=== PATIENT | male | born 1960 | race Caucasian/White ===

== ENCOUNTER 2016-03-27 11:50 | Inpatient (IN) | payer OTHER ==
[2016-03-27 12:17] VITALS: BMI 26.4
--- NOTE | 2016-03-27 13:15 | HP ---
COWS - Scale Resting Pulse: 0= [place] 80 or Below Sweatin=Flushed/Facial Moisture Restless Observation: 3= Extraneous Movement Pupil Size: 2= Moderately Dilated Bone or Joint Aches: 2= Severe Diffuse Aches Runny Nose/ Eye Tearin= Runny Nose/Eyes GI Upset > 30mins: 3= Vomiting/Diarrhea Tremor Observation: 2= Slight Tremor Visible Yawning Observation: 2= >3x During Session Anxiety or Irritability: 2=Irritable/Anxious Goose Flesh Skin: 0=Smooth Skin COWS Score: 20 Admission ROS BHS - HPI Chief Complaint: i need help to stop using heroin Allergies/Adverse Reactions: Allergies Allergy/AdvReac Type Severity Reaction Status Date / Time No Known Allergies Allergy Verified 03/27/16 13:03 History of Present Illness: this 55 years old male with heroin dependence,withdrawal symptom,last detox 15 years ago multiple admissions in detox type 2 dm longest period of sobriety 5 years needed help to stop using drug Exam Limitations: No Limitations - Ebola screening Have you traveled outside of the country in the last 21 days: No Have you been sick,other than usual withdrawal symptoms: No - Review of Systems Constitutional: Chills, Loss of Appetite, Malaise, Night Sweats, Changes in sleep, Weakness EENT: reports: Tearing, Nose Congestion Respiratory: reports: No Symptoms reported Cardiac: reports: Palpitations GI: reports: Diarrhea, Nausea, Vomiting, Abdominal cramping : reports: No Symptoms Reported Musculoskeletal: reports: Back Pain, Joint Pain, Muscle Pain, Joint Stiffness Neuro: reports: Headache, Tremors Endocrine: reports: No Symptoms Reported Hematology: reports: No Symptoms Reported Psychiatric: reports: No Sypmtoms Reported Other Systems: Reviewed and Negative Patient History - Patient Medical History Hx Anemia: No Hx Asthma: No Hx Chronic Obstructive Pulmonary Disease (COPD): No Hx Cancer: No Hx Cardiac Disorders: No Hx Congestive Heart Failure: No Hx Hypertension: No Hx Hypercholesterolemia: No Hx Pacemaker: No HX Cerebrovascular Accident: No Hx Seizures: No Hx Dementia: No Hx Diabetes: Yes (non compliance) Hx Gastrointestinal Disorders: No Hx Liver Disease: No Hx Genitourinary Disorders: No Hx Sexually Transmitted Disorders: No Hx Renal Disease (ESRD): No Hx Thyroid Disease: No Hx Human Immunodeficiency Virus (HIV): No (last 2014 negative) Hx Hepatitis C: No Hx Depression: No Hx Suicide Attempt: No Hx Bipolar Disorder: No Hx Schizophrenia: No Other Medical History: no suicidal,no homicidal - Patient Surgical History Past Surgical History: No - PPD History Previous Implant?: Yes Documented Results: Negative w/o proof Implanted On Prior [facility] Admission?: No PPD to be Administered?: No - Smoking Cessation Smoking history: Former smoker Have you smoked in the past 12 months: No Aproximately how many cigarettes per day: 0 If you are a former smoker, when did you quit?: 2009 Hx Chewing Tobacco Use: No Initiated information on smoking cessation: No 'Breaking Loose' booklet given: 03/27/16 - Substance & Tx. History Hx Alcohol Use: No Hx Substance Use: Yes Substance Use Type: Heroin Hx Substance Use Treatment: Yes (2001 ) - Substances Abused Heroin Route: Inhalation Frequency: Daily Amount used: 3-4 BAGS Age of first use: 25 Date of Last Use: 03/27/16 Non-Rx Methadone Route: Oral Frequency: 1-2 times per week Amount used: 30-40MG Age of first use: 35 Date of Last Use: 03/27/16 Family Disease History - Family Disease History Family History: Denies Admission Physical Exam [facility] - Vital Signs Vital Signs: Vital Signs - 24 hr 03/27/16 12:09 Temperature 96.1 F L Pulse Rate 63 Respiratory 18 Rate Blood Pressure 139/82 - Physical General Appearance: Yes: Moderate Distress, Tremorous, Irritable, Sweating, Anxious HEENTM: Yes: Nasal Congestion Respiratory: Yes: Lungs Clear Neck: Yes: Within Normal Limits Breast: Yes: Within Normal Limits Cardiology: Yes: Within Normal Limits, Regular Rhythm, Regular Rate, S1, S2 Abdominal: Yes: Within Normal Limits, Normal Bowel Sounds, Non Tender, Flat, Soft Genitourinary: Yes: Within Normal Limits Back: Yes: Muscle Spasm Musculoskeletal: Yes: Back pain, Joint Stiffness, Muscle Pain Extremities: Yes: Tremors Neurological: Yes: administrative specialist II-XII NML intact, Fully Oriented, Alert, Motor Strength 5/5 Integumentary: Yes: Dry Lymphatic: Yes: Within Normal Limits - Diagnostic (1) Opioid dependence with withdrawal Current Visit: Yes Status: Acute (2) DM2 (diabetes mellitus, type 2) Current Visit: Yes Status: Acute Cleared for Admission [facility] - Detox or Rehab [facility] Level of Care: Medically Managed Detox Regimen/Protocol: Methadone BHS Breath Alcohol Content Breath Alcohol Content: 0 Urine Drug Screen - Results Drug Screen Negative: No Urine Drug Screen Results: OPI-Opiates, MTD-Methadone
[2016-03-27] MEDS ORDERED: guaiFENesin/D-METHORPHAN HB 10 ML UNIT-DOSE CUPS PO PRN (13:22)
[2016-03-27] MEDS ORDERED: MAGNESIUM HYDROX 2400MG/30ML ORAL SUSPENSION 30 ML CUP PO PRN (13:22)
[2016-03-27] MEDS ORDERED: hydrOXYzine PAMOATE 50 MG CAPSULE (FP) PO PRN (13:22)
[2016-03-27] MEDS ORDERED: P-EPHED 60MG/TRIPROLIDI 2.5MG TABLET PO PRN (13:22)
[2016-03-27] MEDS ORDERED: MAG HYDROX/AL HYDROX/SIMETH 30 ML UNIT-DOSE CUP PO PRN (13:22)
[2016-03-27] MEDS ORDERED: MAGNESIUM CITRATE 300 ML BOTTLE PO PRN (13:22)
[2016-03-27] MEDS ORDERED: ACETAMINOPHEN 325 MG TABLET (FP) PO PRN (13:22)
[2016-03-27] MEDS ORDERED: IBUPROFEN 400 MG TABLET (FP) PO PRN (13:22)
[2016-03-27] MEDS ORDERED: LOPERAMIDE HCL 2 MG CAPSULE PO PRN (13:22)
[2016-03-27] MEDS ORDERED: MENTHOL/PHENOL 1 EACH UD MM PRN (13:22)
[2016-03-27] MEDS ORDERED: METHADONE HCL 10 MG TABLET (FOR DETOX USE ONLY) PO ONE ×2 (13:40→23:00)
[2016-03-27] MEDS: diazePAM 5 MG TABLET PO PRN (14:16)
[2016-03-27 16:04] LABS: URINE APPEARANCE CLEAR; URINE BILIRUBIN NEGATIVE (NEGATIVE); URINE BLOOD NEGATIVE (NEGATIVE); URINE COLOR LTYELLOW; URINE GLUCOSE (UA) NEGATIVE (NEGATIVE); URINE KETONE NEGATIVE (NEGATIVE); URINE LEUK ESTERASE NEGATIVE (NEGATIVE); URINE NITRITE NEGATIVE (NEGATIVE); URINE PROTEIN NEGATIVE (NEGATIVE); URINE UROBILINOGEN NEGATIVE E.U./dl (0.2-1.0)
[2016-03-27] MEDS: diphenhydrAMINE HCL 50 MG CAPSULE PO PRN (22:30)
[2016-03-27] MEDS: THIAMINE HCL 100 MG TABLET (FP) PO SCH (22:30)
[2016-03-28] MEDS: diazePAM 5 MG TABLET PO PRN ×3 (05:42→23:00)
[2016-03-28] MEDS: metFORMIN HCL 500 MG TABLET (FP) PO SCH (07:59)
[2016-03-28] MEDS ORDERED: METHADONE HCL 10 MG TABLET (FOR DETOX USE ONLY) PO ONE (10:00)
[2016-03-28 10:42] LABS: ALBUMIN 4.1 g/dl (3.4-5.0); ALK PHOS 98 U/L (45-117); ANION GAP 10 (8-16); BILIRUBIN,TOTAL 0.4 mg/dL (0.2-1.0); CALCIUM 9.3 mg/dL (8.5-10.1); CO2 31 mmol/L (21-32); GLUCOSE,RANDOM 134 mg/dL (74-106); SGOT/AST 20 U/L (15-37); SGPT/ALT 26 U/L (12-78)
[2016-03-28 10:43] LABS: MCH 29.4 pg (25.7-33.7); MCHC 33.1 g/dl (32.0-35.9); MEAN PLT VOLUME 9.8 fl (7.5-11.1); PLATELET COUNT 202 K/MM3 (134-434); RDW 13.3 % (11.9-15.9)
[2016-03-28] MEDS: PRENATAL VITAMINS W/ FOLIC ACID TABLET (FP) PO SCH (10:55)
--- NOTE | 2016-03-28 11:12 | PN ---
S COWS - Scale Resting Pulse: 0= [place] 80 or Below Sweatin= Chills/Flushing Restless Observation: 3= Extraneous Movement Pupil Size: 2= Moderately Dilated Bone or Joint Aches: 4=Acute Joint/Muscle Pain Runny Nose/ Eye Tearin= Nasal Congestion GI Upset > 30mins: 1= Stomach Cramp Tremor Observation of Outstretched Hands: 2= Slight Tremor Visible Yawning Observation: 1= 1-2x During Session Anxiety or Irritability: 2=Irritable/Anxious Goose Flesh Skin: 0=Smooth Skin COWS Score: 17 BHS Progress Note (SOAP) Subjective: ANXIETY, TREMORS SWEATS. Objective: 03/28/16 11:11 Vital Signs Temperature 96.7 F L 03/28/16 09:48 Pulse Rate 80 03/28/16 09:48 Respiratory Rate 18 03/28/16 09:48 Blood Pressure 121/76 03/28/16 09:48 O2 Sat by Pulse Oximetry (%) Laboratory Last Values WBC 6.0 K/mm3 (4.0-10.0) 03/28/16 06:00 RBC 4.41 M/mm3 (4.00-5.60) 03/28/16 06:00 Hgb 13.0 GM/dL (11.7-16.9) 03/28/16 06:00 Hct 39.2 % (35.4-49) 03/28/16 06:00 MCV 89.0 fl (80-96) 03/28/16 06:00 MCHC 33.1 g/dl (32.0-35.9) 03/28/16 06:00 RDW 13.3 % (11.9-15.9) 03/28/16 06:00 Plt Count 202 K/MM3 (134-434) 03/28/16 06:00 MPV 9.8 fl (7.5-11.1) 03/28/16 06:00 Sodium 141 mmol/L (136-145) 03/28/16 06:00 Potassium 4.1 mmol/L (3.5-5.1) 03/28/16 06:00 Chloride 100 mmol/L (98-107) 03/28/16 06:00 Carbon Dioxide 31 mmol/L (21-32) 03/28/16 06:00 Anion Gap 10 (8-16) 03/28/16 06:00 BUN 19 mg/dL (7-18) H 03/28/16 06:00 Creatinine 1.0 mg/dL (0.7-1.3) 03/28/16 06:00 Creat Clearance w eGFR > 60 (>60) 03/28/16 06:00 POC Glucometer 95 UNITS (()) 03/28/16 05:43 Random Glucose 134 mg/dL (74-106) H 03/28/16 06:00 Calcium 9.3 mg/dL (8.5-10.1) 03/28/16 06:00 Total Bilirubin 0.4 mg/dL (0.2-1.0) 03/28/16 06:00 AST 20 U/L (15-37) 03/28/16 06:00 ALT 26 U/L (12-78) 03/28/16 06:00 Alkaline Phosphatase 98 U/L (45-117) 03/28/16 06:00 Total Protein 7.0 g/dl (6.4-8.2) 03/28/16 06:00 Albumin 4.1 g/dl (3.4-5.0) 03/28/16 06:00 Urine Color Ltyellow 03/27/16 14:00 Urine Appearance Clear 03/27/16 14:00 Urine pH 6.0 (5.0-8.0) 03/27/16 14:00 Ur Specific [place] 1.018 (1.001-1.035) 03/27/16 14:00 Urine Protein Negative (NEGATIVE) 03/27/16 14:00 Urine Glucose (UA) Negative (NEGATIVE) 03/27/16 14:00 Urine Ketones Negative (NEGATIVE) 03/27/16 14:00 Urine Blood Negative (NEGATIVE) 03/27/16 14:00 Urine Nitrite Negative (NEGATIVE) 03/27/16 14:00 Urine Bilirubin Negative (NEGATIVE) 03/27/16 14:00 Urine Urobilinogen Negative E.U./dl (0.2-1.0) 03/27/16 14:00 Ur Leukocyte Esterase Negative (NEGATIVE) 03/27/16 14:00 Assessment: 03/28/16 11:12 WITHDRAWAL SX Plan: CONTINUE DETOX
--- NOTE | 2016-03-28 13:31 | EKG ---
Test Reason : Blood Pressure : / mmHG Vent. Rate : 060 BPM Atrial Rate : 060 BPM P-R Int : 164 ms QRS Dur : 092 ms QT Int : 408 ms P-R-T Axes : 052 027 015 degrees QTc Int : 408 ms NORMAL SINUS RHYTHM NORMAL ECG NO PREVIOUS ECGS AVAILABLE Confirmed by PIOTR BROOKS, VENECIA ([id number]) on 03/28/2016 1:31:26 PM Referred By: Confirmed By:VENECIA SALDAÑA MD
[2016-03-28] MEDS: THIAMINE HCL 100 MG TABLET (FP) PO SCH (22:59)
[2016-03-28] MEDS: diphenhydrAMINE HCL 50 MG CAPSULE PO PRN (23:01)
[2016-03-29] MEDS: diazePAM 5 MG TABLET PO PRN (05:41)
[2016-03-29] MEDS: metFORMIN HCL 500 MG TABLET (FP) PO SCH (08:12)
[2016-03-29] MEDS ORDERED: METHADONE HCL 5 MG TABLET (FOR DETOX USE ONLY) PO ONE (10:00)
[2016-03-29] MEDS: PRENATAL VITAMINS W/ FOLIC ACID TABLET (FP) PO SCH (10:47)
--- NOTE | 2016-03-29 11:26 | PN ---
BHS COWS - Scale Resting Pulse: 1= [place] 81-100 Sweatin= Chills/Flushing Restless Observation: 3= Extraneous Movement Pupil Size: 2= Moderately Dilated Bone or Joint Aches: 4=Acute Joint/Muscle Pain Runny Nose/ Eye Tearin= Nasal Congestion GI Upset > 30mins: 1= Stomach Cramp Tremor Observation of Outstretched Hands: 2= Slight Tremor Visible Yawning Observation: 1= 1-2x During Session Anxiety or Irritability: 2=Irritable/Anxious Goose Flesh Skin: 0=Smooth Skin COWS Score: 18 BHS Progress Note (SOAP) Subjective: ANXIETY,IRRITABILITY,SWEATS. Objective: 03/29/16 11:25 Vital Signs Temperature 96.6 F L 03/29/16 10:27 Pulse Rate 86 03/29/16 10:27 Respiratory Rate 16 03/29/16 10:27 Blood Pressure 159/88 03/29/16 10:27 O2 Sat by Pulse Oximetry (%) Laboratory Last Values WBC 6.0 K/mm3 (4.0-10.0) 03/28/16 06:00 RBC 4.41 M/mm3 (4.00-5.60) 03/28/16 06:00 Hgb 13.0 GM/dL (11.7-16.9) 03/28/16 06:00 Hct 39.2 % (35.4-49) 03/28/16 06:00 MCV 89.0 fl (80-96) 03/28/16 06:00 MCHC 33.1 g/dl (32.0-35.9) 03/28/16 06:00 RDW 13.3 % (11.9-15.9) 03/28/16 06:00 Plt Count 202 K/MM3 (134-434) 03/28/16 06:00 MPV 9.8 fl (7.5-11.1) 03/28/16 06:00 Sodium 141 mmol/L (136-145) 03/28/16 06:00 Potassium 4.1 mmol/L (3.5-5.1) 03/28/16 06:00 Chloride 100 mmol/L (98-107) 03/28/16 06:00 Carbon Dioxide 31 mmol/L (21-32) 03/28/16 06:00 Anion Gap 10 (8-16) 03/28/16 06:00 BUN 19 mg/dL (7-18) H 03/28/16 06:00 Creatinine 1.0 mg/dL (0.7-1.3) 03/28/16 06:00 Creat Clearance w eGFR > 60 (>60) 03/28/16 06:00 POC Glucometer 86 UNITS (()) 03/29/16 05:32 Random Glucose 134 mg/dL (74-106) H 03/28/16 06:00 Calcium 9.3 mg/dL (8.5-10.1) 03/28/16 06:00 Total Bilirubin 0.4 mg/dL (0.2-1.0) 03/28/16 06:00 AST 20 U/L (15-37) 03/28/16 06:00 ALT 26 U/L (12-78) 03/28/16 06:00 Alkaline Phosphatase 98 U/L (45-117) 03/28/16 06:00 Total Protein 7.0 g/dl (6.4-8.2) 03/28/16 06:00 Albumin 4.1 g/dl (3.4-5.0) 03/28/16 06:00 Urine Color Ltyellow 03/27/16 14:00 Urine Appearance Clear 03/27/16 14:00 Urine pH 6.0 (5.0-8.0) 03/27/16 14:00 Ur Specific [place] 1.018 (1.001-1.035) 03/27/16 14:00 Urine Protein Negative (NEGATIVE) 03/27/16 14:00 Urine Glucose (UA) Negative (NEGATIVE) 03/27/16 14:00 Urine Ketones Negative (NEGATIVE) 03/27/16 14:00 Urine Blood Negative (NEGATIVE) 03/27/16 14:00 Urine Nitrite Negative (NEGATIVE) 03/27/16 14:00 Urine Bilirubin Negative (NEGATIVE) 03/27/16 14:00 Urine Urobilinogen Negative E.U./dl (0.2-1.0) 03/27/16 14:00 Ur Leukocyte Esterase Negative (NEGATIVE) 03/27/16 14:00 RPR Titer Nonreactive (NONREACTIVE) 03/28/16 06:00 Assessment: 03/29/16 11:25 WITHDRAWAL SX Plan: CONTINUE DETOX
[2016-03-29] MEDS: diphenhydrAMINE HCL 50 MG CAPSULE PO PRN (22:55)
[2016-03-29] MEDS: THIAMINE HCL 100 MG TABLET (FP) PO SCH (22:55)
[2016-03-30] MEDS: diazePAM 5 MG TABLET PO PRN (05:43)
[2016-03-30] MEDS: metFORMIN HCL 500 MG TABLET (FP) PO SCH (07:42)
[2016-03-30] MEDS ORDERED: METHADONE HCL 5 MG TABLET (FOR DETOX USE ONLY) PO ONE (10:00)
[2016-03-30] MEDS: PRENATAL VITAMINS W/ FOLIC ACID TABLET (FP) PO SCH (10:26)
--- NOTE | 2016-03-30 11:35 | PN ---
BHS Progress Note (SOAP) Subjective: ANXIETY,SWEATS, FATIGUE. Objective: 03/30/16 11:34 Vital Signs Temperature 96.1 F L 03/30/16 10:47 Pulse Rate 77 03/30/16 10:47 Respiratory Rate 18 03/30/16 10:47 Blood Pressure 120/76 03/30/16 10:47 O2 Sat by Pulse Oximetry (%) Laboratory Last Values WBC 6.0 K/mm3 (4.0-10.0) 03/28/16 06:00 RBC 4.41 M/mm3 (4.00-5.60) 03/28/16 06:00 Hgb 13.0 GM/dL (11.7-16.9) 03/28/16 06:00 Hct 39.2 % (35.4-49) 03/28/16 06:00 MCV 89.0 fl (80-96) 03/28/16 06:00 MCHC 33.1 g/dl (32.0-35.9) 03/28/16 06:00 RDW 13.3 % (11.9-15.9) 03/28/16 06:00 Plt Count 202 K/MM3 (134-434) 03/28/16 06:00 MPV 9.8 fl (7.5-11.1) 03/28/16 06:00 Sodium 141 mmol/L (136-145) 03/28/16 06:00 Potassium 4.1 mmol/L (3.5-5.1) 03/28/16 06:00 Chloride 100 mmol/L (98-107) 03/28/16 06:00 Carbon Dioxide 31 mmol/L (21-32) 03/28/16 06:00 Anion Gap 10 (8-16) 03/28/16 06:00 BUN 19 mg/dL (7-18) H 03/28/16 06:00 Creatinine 1.0 mg/dL (0.7-1.3) 03/28/16 06:00 Creat Clearance w eGFR > 60 (>60) 03/28/16 06:00 POC Glucometer 89 UNITS (()) 03/30/16 05:45 Random Glucose 134 mg/dL (74-106) H 03/28/16 06:00 Calcium 9.3 mg/dL (8.5-10.1) 03/28/16 06:00 Total Bilirubin 0.4 mg/dL (0.2-1.0) 03/28/16 06:00 AST 20 U/L (15-37) 03/28/16 06:00 ALT 26 U/L (12-78) 03/28/16 06:00 Alkaline Phosphatase 98 U/L (45-117) 03/28/16 06:00 Total Protein 7.0 g/dl (6.4-8.2) 03/28/16 06:00 Albumin 4.1 g/dl (3.4-5.0) 03/28/16 06:00 Urine Color Ltyellow 03/27/16 14:00 Urine Appearance Clear 03/27/16 14:00 Urine pH 6.0 (5.0-8.0) 03/27/16 14:00 Ur Specific [place] 1.018 (1.001-1.035) 03/27/16 14:00 Urine Protein Negative (NEGATIVE) 03/27/16 14:00 Urine Glucose (UA) Negative (NEGATIVE) 03/27/16 14:00 Urine Ketones Negative (NEGATIVE) 03/27/16 14:00 Urine Blood Negative (NEGATIVE) 03/27/16 14:00 Urine Nitrite Negative (NEGATIVE) 03/27/16 14:00 Urine Bilirubin Negative (NEGATIVE) 03/27/16 14:00 Urine Urobilinogen Negative E.U./dl (0.2-1.0) 03/27/16 14:00 Ur Leukocyte Esterase Negative (NEGATIVE) 03/27/16 14:00 RPR Titer Nonreactive (NONREACTIVE) 03/28/16 06:00 Assessment: 03/30/16 11:35 WITHDRAWAL SX Plan: CONTINUE DETOX
[2016-03-30] MEDS: THIAMINE HCL 100 MG TABLET (FP) PO SCH (22:16)
[2016-03-30] MEDS: diphenhydrAMINE HCL 50 MG CAPSULE PO PRN (22:16)
[2016-03-31] MEDS: metFORMIN HCL 500 MG TABLET (FP) PO SCH (07:00)
--- NOTE | 2016-03-31 09:45 | PN ---
BHS Progress Note (SOAP) Subjective: sweating,interrupted sleep,restless Objective: 03/31/16 09:44 Vital Signs - 8 hr 03/31/16 03/31/16 03/31/16 03:46 07:11 09:39 Temperature 97.3 F L 96.2 F L Pulse Rate 77 65 Respiratory 18 18 18 Rate Blood Pressure 142/93 108/69 Laboratory Tests 03/27/16 03/27/16 03/27/16 13:13 14:00 16:19 WBC RBC Hgb Hct MCV MCHC RDW Plt Count MPV Sodium Potassium Chloride Carbon Dioxide Anion Gap BUN Creatinine Creat Clearance w eGFR POC Glucometer 203 148 Random Glucose Calcium Total Bilirubin AST ALT Alkaline Phosphatase Total Protein Albumin Urine Color Ltyellow Urine Appearance Clear Urine pH 6.0 Ur Specific [place] 1.018 Urine Protein Negative Urine Glucose (UA) Negative Urine Ketones Negative Urine Blood Negative Urine Nitrite Negative Urine Bilirubin Negative Urine Urobilinogen Negative Ur Leukocyte Esterase Negative RPR Titer 03/28/16 03/28/16 03/28/16 05:43 06:00 06:00 WBC 6.0 RBC 4.41 Hgb 13.0 Hct 39.2 MCV 89.0 MCHC 33.1 RDW 13.3 Plt Count 202 MPV 9.8 Sodium 141 Potassium 4.1 Chloride 100 Carbon Dioxide 31 Anion Gap 10 BUN 19 H Creatinine 1.0 Creat Clearance w eGFR > 60 POC Glucometer 95 Random Glucose 134 H Calcium 9.3 Total Bilirubin 0.4 AST 20 ALT 26 Alkaline Phosphatase 98 Total Protein 7.0 Albumin 4.1 Urine Color Urine Appearance Urine pH Ur Specific [place] Urine Protein Urine Glucose (UA) Urine Ketones Urine Blood Urine Nitrite Urine Bilirubin Urine Urobilinogen Ur Leukocyte Esterase RPR Titer 03/28/16 03/28/16 03/29/16 06:00 16:29 05:32 WBC RBC Hgb Hct MCV MCHC RDW Plt Count MPV Sodium Potassium Chloride Carbon Dioxide Anion Gap BUN Creatinine Creat Clearance w eGFR POC Glucometer 107 86 Random Glucose Calcium Total Bilirubin AST ALT Alkaline Phosphatase Total Protein Albumin Urine Color Urine Appearance Urine pH Ur Specific [place] Urine Protein Urine Glucose (UA) Urine Ketones Urine Blood Urine Nitrite Urine Bilirubin Urine Urobilinogen Ur Leukocyte Esterase RPR Titer Nonreactive 03/29/16 03/29/16 03/30/16 16:34 16:36 05:45 WBC RBC Hgb Hct MCV MCHC RDW Plt Count MPV Sodium Potassium Chloride Carbon Dioxide Anion Gap BUN Creatinine Creat Clearance w eGFR POC Glucometer 265 100 89 Random Glucose Calcium Total Bilirubin AST ALT Alkaline Phosphatase Total Protein Albumin Urine Color Urine Appearance Urine pH Ur Specific [place] Urine Protein Urine Glucose (UA) Urine Ketones Urine Blood Urine Nitrite Urine Bilirubin Urine Urobilinogen Ur Leukocyte Esterase RPR Titer 03/30/16 03/31/16 16:17 05:50 WBC RBC Hgb Hct MCV MCHC RDW Plt Count MPV Sodium Potassium Chloride Carbon Dioxide Anion Gap BUN Creatinine Creat Clearance w eGFR POC Glucometer 116 94 Random Glucose Calcium Total Bilirubin AST ALT Alkaline Phosphatase Total Protein Albumin Urine Color Urine Appearance Urine pH Ur Specific [place] Urine Protein Urine Glucose (UA) Urine Ketones Urine Blood Urine Nitrite Urine Bilirubin Urine Urobilinogen Ur Leukocyte Esterase RPR Titer labs noted Assessment: 03/31/16 09:44 withdrawal sx. Plan: continue detox
[2016-03-31] MEDS ORDERED: METHADONE HCL 10 MG TABLET (FOR DETOX USE ONLY) PO ONE (10:00)
[2016-03-31] MEDS: PRENATAL VITAMINS W/ FOLIC ACID TABLET (FP) PO SCH (10:24)
[2016-03-31] MEDS: THIAMINE HCL 100 MG TABLET (FP) PO SCH (22:31)
[2016-03-31] MEDS: diphenhydrAMINE HCL 50 MG CAPSULE PO PRN (22:31)
[2016-04-01] MEDS ORDERED: METHADONE HCL 5 MG TABLET (FOR DETOX USE ONLY) PO ONE (06:00)
[2016-04-01] MEDS: metFORMIN HCL 500 MG TABLET (FP) PO SCH (06:25)
[2016-04-01 06:34] VITALS: BP 130/86; PULSE 70; TEMP 96.9
--- NOTE | 2016-04-01 12:49 | DS ---
[facility] Detox Discharge Summary Admission Date: 03/27/16 Discharge Date: 04/01/16 - History Present History: Opioid Dependence Pertinent Past History: DMT2 - Physical Exam Results Vital Signs: Vital Signs Temperature 96.9 F L 04/01/16 06:34 Pulse Rate 70 04/01/16 06:34 Respiratory Rate 18 04/01/16 06:34 Blood Pressure 130/86 04/01/16 06:34 O2 Sat by Pulse Oximetry (%) Pertinent Admission Physical Exam Findings: Withdrawal symptoms Laboratory Results - last 24 hr 03/31/16 04/01/16 16:14 05:59 POC Glucometer 124 114 Lab Results Laboratory Tests 03/27/16 03/27/16 03/27/16 13:13 14:00 16:19 WBC RBC Hgb Hct MCV MCHC RDW Plt Count MPV Sodium Potassium Chloride Carbon Dioxide Anion Gap BUN Creatinine Creat Clearance w eGFR POC Glucometer 203 148 Random Glucose Calcium Total Bilirubin AST ALT Alkaline Phosphatase Total Protein Albumin Urine Color Ltyellow Urine Appearance Clear Urine pH 6.0 Ur Specific [place] 1.018 Urine Protein Negative Urine Glucose (UA) Negative Urine Ketones Negative Urine Blood Negative Urine Nitrite Negative Urine Bilirubin Negative Urine Urobilinogen Negative Ur Leukocyte Esterase Negative RPR Titer 03/28/16 03/28/16 03/28/16 05:43 06:00 06:00 WBC 6.0 RBC 4.41 Hgb 13.0 Hct 39.2 MCV 89.0 MCHC 33.1 RDW 13.3 Plt Count 202 MPV 9.8 Sodium 141 Potassium 4.1 Chloride 100 Carbon Dioxide 31 Anion Gap 10 BUN 19 H Creatinine 1.0 Creat Clearance w eGFR > 60 POC Glucometer 95 Random Glucose 134 H Calcium 9.3 Total Bilirubin 0.4 AST 20 ALT 26 Alkaline Phosphatase 98 Total Protein 7.0 Albumin 4.1 Urine Color Urine Appearance Urine pH Ur Specific [place] Urine Protein Urine Glucose (UA) Urine Ketones Urine Blood Urine Nitrite Urine Bilirubin Urine Urobilinogen Ur Leukocyte Esterase RPR Titer 03/28/16 03/28/16 03/29/16 06:00 16:29 05:32 WBC RBC Hgb Hct MCV MCHC RDW Plt Count MPV Sodium Potassium Chloride Carbon Dioxide Anion Gap BUN Creatinine Creat Clearance w eGFR POC Glucometer 107 86 Random Glucose Calcium Total Bilirubin AST ALT Alkaline Phosphatase Total Protein Albumin Urine Color Urine Appearance Urine pH Ur Specific [place] Urine Protein Urine Glucose (UA) Urine Ketones Urine Blood Urine Nitrite Urine Bilirubin Urine Urobilinogen Ur Leukocyte Esterase RPR Titer Nonreactive 03/29/16 03/29/16 03/30/16 16:34 16:36 05:45 WBC RBC Hgb Hct MCV MCHC RDW Plt Count MPV Sodium Potassium Chloride Carbon Dioxide Anion Gap BUN Creatinine Creat Clearance w eGFR POC Glucometer 265 100 89 Random Glucose Calcium Total Bilirubin AST ALT Alkaline Phosphatase Total Protein Albumin Urine Color Urine Appearance Urine pH Ur Specific [place] Urine Protein Urine Glucose (UA) Urine Ketones Urine Blood Urine Nitrite Urine Bilirubin Urine Urobilinogen Ur Leukocyte Esterase RPR Titer 03/30/16 03/31/16 03/31/16 16:17 05:50 16:14 WBC RBC Hgb Hct MCV MCHC RDW Plt Count MPV Sodium Potassium Chloride Carbon Dioxide Anion Gap BUN Creatinine Creat Clearance w eGFR POC Glucometer 116 94 124 Random Glucose Calcium Total Bilirubin AST ALT Alkaline Phosphatase Total Protein Albumin Urine Color Urine Appearance Urine pH Ur Specific [place] Urine Protein Urine Glucose (UA) Urine Ketones Urine Blood Urine Nitrite Urine Bilirubin Urine Urobilinogen Ur Leukocyte Esterase RPR Titer 04/01/16 05:59 WBC RBC Hgb Hct MCV MCHC RDW Plt Count MPV Sodium Potassium Chloride Carbon Dioxide Anion Gap BUN Creatinine Creat Clearance w eGFR POC Glucometer 114 Random Glucose Calcium Total Bilirubin AST ALT Alkaline Phosphatase Total Protein Albumin Urine Color Urine Appearance Urine pH Ur Specific [place] Urine Protein Urine Glucose (UA) Urine Ketones Urine Blood Urine Nitrite Urine Bilirubin Urine Urobilinogen Ur Leukocyte Esterase RPR Titer Labs noted - Treatment Hospital Course: Detox Protocol Followed, Detoxed Safely, Responded well, Discharged Condition Good - Medication Discharge Medications: Ambulatory Orders Metformin HCl [Glucophage -] 500 mg PO DAILY 03/27/16 NK [No Known Home Medication] 03/27/16 - Diagnosis (1) DM2 (diabetes mellitus, type 2) Status: Chronic Qualifiers: Diabetes mellitus complication status: without complication (2) Opioid dependence with withdrawal Status: Acute - AMA Did Patient Leave Against Medical Advice: No
== END 2016-04-01 09:32 | disposition home or self-care (01) | DRG 773 ==
LOC: YASAS 11:50 → Y3N 13:34
PROVIDERS: ADMIT Internal Medicine; ATTEND Internal Medicine
PROC: HZ2ZZZZ Detoxification Services for Substance Abuse Treatment (ICD-10-PCS; principal; 2016-04-01)
DX: F11.23 Opioid dependence with withdrawal (principal); E11.9 Type 2 diabetes mellitus without complications; Z79.84 Long term (current) use of oral hypoglycemic drugs
CPT/HCPCS: 36415; 80053; 81003; 85027; 86593; 93005; 93010